=== PATIENT | female | born 1940 | race Caucasian/White ===

== ENCOUNTER 2017-04-05 08:07 | Emergency (ER) | payer MEDICARE, OTHER ==
[2017-04-19] MEDS ORDERED: LASIX20 MG PO (15:30)
[2017-04-19] MEDS ORDERED: DILANTIN100 MG PO (15:30)
[2017-04-19] MEDS ORDERED: VASOTEC5 MG PO (15:31)
[2017-04-19] MEDS ORDERED: PREVACID30 M1 PO (15:31)
[2017-04-19] MEDS ORDERED: CARDIZEM CD120 MG PO (15:31)
[2017-04-19] MEDS ORDERED: MACROBID100 MG PO (15:32)
== END 2017-04-05 10:05 | disposition home or self-care (01) ==
LOC: FER 08:07
DX: S80.02XA Contusion of left knee, initial encounter (principal); I10 Essential (primary) hypertension; G40.909 Epilepsy, unspecified, not intractable, without status epilepticus; W01.0XXA Fall on same level from slipping, tripping and stumbling without subsequent striking against object, initial encounter
CPT/HCPCS: 36415; 73564; 80053; 85025; 99283

== ENCOUNTER 2017-04-15 18:50 | Inpatient (IN) | payer MEDICARE, OTHER ==
[~2017-04-15] VITALS: Ht 167.6 cm; Wt 56.0 kg
[2017-04-15 15:03] LABS: BASOPHIL 0.2 % (0-2); EOSINOPHIL 0.1 % (0-7); HCT 36.5 % (37.0-47.0); HGB 12.4 g/dl (12.5-16.0); LYMPHOCYTE 8.3 % (15-48); MCH 31.6 pg (25.0-31.0); MCV 92.9 fL (78.0-100.0); MONOCYTE 12.9 % (0-12); MPV 10.6 fL (6.0-9.5); NEUTROPHIL 78.5 % (41-80); PLT 287 K/uL (150-400); RBC 3.93 M/uL (4.20-5.40); RDW 14.6 % (11.5-14.0); WBC 10.9 K/uL (4.0-10.5)
[2017-04-15 15:19] LABS: ALBUMIN 3.9 g/dL (3.4-4.8); BILIRUBIN - TOTAL 0.3 mg/dL (0.1-1.0); CREATININE 1.1 mg/dL (0.5-1.0); GLOBULIN (CALCULATION) 2.8 g/dL (2.2-4.2); LACTIC ACID 1.3 mmol/L (0.5-2.2); POTASSIUM 4.5 mmol/L (3.5-5.1); TOTAL PROTEIN 6.7 g/dL (6.4-8.3)
[2017-04-15 20:50] LABS: ACETAMINOPHEN (TYLENOL) < 5.0 ug/mL (10.0-30.0); ALCOHOL (ETOH) MEDICAL NONE DETECTED; SALICYLATE < 6 ug/mL (0-300)
[2017-04-15 20:51] LABS: CKMB 1.54 ng/mL (0.97-4.94); TROPONIN T < 0.010 ng/mL
[2017-04-15 21:38] LABS: BILIRUBIN NEGATIVE (NEGATIVE); BLOOD NEGATIVE Ery/uL (NEGATIVE); CLARITY CLEAR (CLEAR); COLOR YELLOW (YELLOW); GLUCOSE (U) NORMAL (NORMAL); KETONE (U) NEGATIVE (NEGATIVE); LEUKOCYTES TRACE Leu/uL (NEGATIVE); NITRITE NEGATIVE (NEGATIVE); PROTEIN NEGATIVE (NEGATIVE); pH 5.5 (5.0-9.0)
[2017-04-15 21:42] LABS: BACTERIA 1+; URINARY RBC RARE
[2017-04-15 21:57] LABS: AMPHETAMINES NEGATIVE (NEGATIVE); BARBITURATES NEGATIVE (NEGATIVE); BENZODIAZEPINES NEGATIVE (NEGATIVE); COCAINE NEGATIVE (NEGATIVE); MARIJUANA (THC) NEGATIVE (NEGATIVE); METHADONE NEGATIVE (NEGATIVE); TRICYCLIC ANTIDEPRESSANT NEGATIVE (NEGATIVE)
[2017-04-16 08:04] LABS: CREATININE 0.8 mg/dL (0.5-1.0); POTASSIUM 3.9 mmol/L (3.5-5.1)
[2017-04-17 04:54] LABS: HCT 29.5 % (37.0-47.0); MCH 31.5 pg (25.0-31.0); MCHC 33.9 g/dL (32.0-36.0); MCV 93.1 fL (78.0-100.0); MPV 9.4 fL (6.0-9.5); RBC 3.17 M/uL (4.20-5.40); RDW 14.3 % (11.5-14.0); WBC 4.8 K/uL (4.0-10.5)
[2017-04-17 05:18] LABS: CREATININE 0.7 mg/dL (0.5-1.0); POTASSIUM 4.1 mmol/L (3.5-5.1)
[2017-04-18 06:58] LABS: HCT 34.9 % (37.0-47.0); MCH 31.3 pg (25.0-31.0); MCHC 34.4 g/dL (32.0-36.0); MCV 91.1 fL (78.0-100.0); MPV 9.7 fL (6.0-9.5); RBC 3.83 M/uL (4.20-5.40); RDW 14.4 % (11.5-14.0); WBC 7.4 K/uL (4.0-10.5)
[2017-04-18 07:14] LABS: CREATININE 0.7 mg/dL (0.5-1.0); POTASSIUM 3.6 mmol/L (3.5-5.1)
--- NOTE | 2017-04-19 06:50 | NUR ---
04/18/17 2030 CALLED [facility] INTERMEDIATE DISCUSSED IV SITE HAD NOT BE D/C WHEN EMS STAFF LEFT WITH PT COLONIAL [employer]IFE PRACTITIONER STATED THEY HAD SEEN IV SITE AND HAD ORDER TO REMOVE IT.
[2017-04-19] MEDS ORDERED: DILANTIN100 MG PO (15:30)
[2017-04-19] MEDS ORDERED: LASIX20 MG PO (15:30)
[2017-04-19] MEDS ORDERED: CARDIZEM CD120 MG PO (15:31)
[2017-04-19] MEDS ORDERED: VASOTEC5 MG PO (15:31)
[2017-04-19] MEDS ORDERED: PREVACID30 M1 PO (15:31)
[2017-04-19] MEDS ORDERED: MACROBID100 MG PO (15:32)
== END 2017-04-18 19:45 | DRG 918 ==
LOC: FER 18:50 → FMS 22:05
PROVIDERS: Emergency Medicine Emergency Medical Services; Internal Medicine; Nurse Practitioner; ADMIT Internal Medicine
DX: T42.0X1A Poisoning by hydantoin derivatives, accidental (unintentional), initial encounter (principal); N39.0 Urinary tract infection, site not specified; R13.10 Dysphagia, unspecified; G40.909 Epilepsy, unspecified, not intractable, without status epilepticus; T42.0X5A Adverse effect of hydantoin derivatives, initial encounter; R27.0 Ataxia, unspecified; I10 Essential (primary) hypertension; M79.7 Fibromyalgia
CPT/HCPCS: 36415; 70450; 71101; 71250; 72125; 80048; 80053; 80185; 80305; 81001; 82550; 82553; 83605; 84439; 84443; 84484; 85025; 87040; 87088; 92526; 93005; 97116; 97162; 97166; 97530-GP; 97535; G0480; J0743; J3420